=== PATIENT | female | born 1930 | race Caucasian/White ===

== ENCOUNTER 2016-10-26 12:33 | Emergency (ER) | payer MEDICARE ==
[~2016-10-26] VITALS: Ht 154.9 cm; Wt 85.0 kg
[~2016-10-26 12:33] MED LIST: ACET-171 PO; ATEN25TA PO; ATOR20TA PO; CHOL2000 PO; CLOP75TA3 PO; MULT-1052 PO; MULT-895 PO; ZLP10T PO
[2016-10-26 12:42] VITALS: BP 143/69; PULSE 64; RESP 12; O2SAT 98
[2016-10-26 13:54] LABS: BASOPHILS % (AUTO) 0.3 % (0-3); EOSINOPHILS % (AUTO) 2.8 % (0-5); MONOCYTES % (AUTO) 7.8 % (4-12); NEUTROPHILS % (AUTO) 65.3 % (40-74); Platelet Count 327 bil/L (150-400)
--- NOTE | 2016-10-26 13:55 | DRSVH ---
PROCEDURE: X-RAY CHEST, TWO VIEWS ([id number]) INDICATIONS: dizziness, weakness TECHNIQUE: 2 views of the chest were acquired. COMPARISON: [facility], , CHEST 2VW, 07/18/2014, 12:48. FINDINGS: Surgical changes and devices: Multiple surgical clips are redemonstrated in the right thorax. Lungs and pleura: No pleural effusions or pneumothorax. Lungs are clear. Mediastinum: Mediastinal contours are normal. Heart size is normal. Bones and chest wall: No suspicious bony abnormalities. Soft tissues appear unremarkable. IMPRESSION: 1. No acute cardiopulmonary disease. Dictated by: Roger Echevarria M.D. on 10/26/2016 at 13:53 Approved by: Roger Echevarria M.D. on 10/26/2016 at 13:54
[2016-10-26 14:53] VITALS: BP 132/62; PULSE 63; RESP 14; O2SAT 97
--- NOTE | 2016-10-26 15:09 | ED.REPORT ---
HPI-General Illness Date of Service October 26, 2016 ED Provider: Dr. Lalo Fleming 86 year old female with a history of HTN, TIA's and Stroke who presents to the ER accompanied by family with complaints of "low heart rate" and dizziness/ lightheadedness for the 2-3 weeks. This has been worse in the last few days. Her heart rate has been in the 50's-60's and the symptoms seem to be associated with when this is low. Her HR is typically in the 70's. She reports fatigue, chills and nausea. Pt denies any pain, fever, cough, dysuria or recent falls. Nursing Notes Stated Complaint: LOW HEART RATE/ DIZZINESS Chief Complaint: General Complaint Nursing Notes Reviewed: Yes Allergies: Coded Allergies: Cephalexin Monohydrate (Verified Allergy, Severe, blisters, 09/06/13) TAPE (Verified Allergy, Severe, all tapes/blisters, 09/06/13) Uncoded Allergies: CEPHALOSPORIN (Allergy, Severe, 03/24/09) Scheduled Atenolol (Atenolol) 25 Mg Tablet 12.5 MG PO QAM Atorvastatin (Lipitor) 20 Mg Tablet 40 MG PO HS Cholecalciferol (Vitamin D3) (Vitamin D) 2,000 Unit Capsule 2,000 UNIT PO DAILY Clopidogrel Bisulfate (Plavix) 75 Mg Tablet 75 MG PO DAILY Multivit-Min/FA/Lutein/Zeaxant (Macular Vitamin Tablet) 1 Each Tablet 1 EACH PO DAILY Multivits W-Fe,Other Min/Lut (Centrum Silver Ultra Women Tab) 1 Each Tablet 1 EACH PO DAILY Scheduled PRN Acetaminophen (Acetaminophen) 500 Mg Tablet 1,000 MG PO HS PRN PRN For Pain Zolpidem (Ambien) 10 Mg Tab 10 MG PO HS PRN PRN For Insomnia General Time Seen by MD: 15:08 Chief Complaint Dizziness Hx Obtained From: Patient Arrived By: Wheelchair Sudden in Onset?: No Onset Occurred: More than a week ago... Symptom Duration: Since onset Severity: Current: No pain currently Associated with: Denies: Fever, Shortness of breath Pertinent Negative: Relieved by nothing Past Medical History Past Medical History Notes: Cardiology: Reyna Silva Past Medical History Prior occipital stroke x3 Reports: Hypertension, Stroke, Transient ischemic attack Past Surgical History Colon resection Mastectomy Reports: Knee replacement Smoking History Never Smoker Social History Alcohol Use: "Social" Drug Use: Denies drug use Review of Systems Full Review of Systems Constitutional: Reports: Chills, Fatigue, Denies: Fever Respiratory: Denies: Non-productive cough, Shortness of breath Cardiovascular: Denies: Chest pain, Syncope GI: Reports: Nausea, Denies: Vomiting Female: Denies: Dysuria, Urinary frequency Skin: Denies Diaphoresis, Denies Rash Neurologic: Reports: Dizziness, Lightheaded Complete sys rev & neg: except as marked. Physical Exam Vital Signs Vital Signs Date Time Temp Pulse Resp B/P Pulse Ox O2 Delivery O2 Flow Rate FiO2 10/26/16 14:53 63 14 132/62 97 10/26/16 12:42 36.1 64 12 143/69 98 Room Air Initial VS: Reviewed General/Constitutional: Well-developed, Well-nourished Head / Eyes: Atraumatic, Normocephalic, PERRL ENT: Mucous membranes moist, Conjunctiva normal, No scleral icterus Neck: Supple, Full range of motion Respiratory: Breath sounds normal, Clear to auscultation, No respiratory distress Cardiovascular: Regular rate & rhythm, Heart sounds normal, Intact distal pulses Abdomen / GI: Soft, Non-tender, No guarding, No rebound, No distention Extremities: Vascular intact (Trace edema bilat lower extremities), Neuro intact, No tenderness Skin: Warm, Dry, No cyanosis Neurologic: Alert, Oriented, Nonfocal Psychiatric: Mood/affect normal, Behavior normal, Normal thought content Interpretation & Diagnostics Lab Results Interpretation Result Diagram: 10/26/16 1341 10/26/16 1341 Test 10/26/16 13:20 10/26/16 13:41 White Blood Count 7.4th/mm3 (3.8-10.1) Red Blood Count 3.71mil/mm3 (3.90-5.20) Hemoglobin 11.5g/dL (12.0-15.6) Hematocrit 34.5% (35.0-46.0) Mean Corpuscular Volume 93.0fL (81-100) Mean Corpuscular Hemoglobin 31.0pg (27.0-35.0) Mean Corpuscular Hemoglobin Concent 33.3% (32.0-37.0) Red Cell Distribution Width 13.3% (12.3-15.4) Platelet Count 327bil/L (150-400) Neutrophils (%) (Auto) 65.3% (40-74) Lymphocytes (%) (Auto) 23.5% (14-46) Monocytes (%) (Auto) 7.8% (4-12) Eosinophils (%) (Auto) 2.8% (0-5) Basophils (%) (Auto) 0.3% (0-3) Sodium Level 141mEq/L (134-144) Potassium Level 4.9mEq/L (3.5-5.2) Chloride Level 105mEq/L (97-108) Carbon Dioxide Level 22mmol/L (18-29) Blood Urea Nitrogen 33mg/dL (8-27) Creatinine 1.72mg/dL (0.57-1.00) Estimat Glomerular Filtration Rate 40mL/min (>59) Glucose Level 113mg/dL (60-99) Calcium Level 11.1mg/dL (8.5-10.1) Total Bilirubin 0.3mg/dL (0.0-1.2) Aspartate Amino Transf (AST/SGOT) 34U/L (0-50) Alanine Aminotransferase (ALT/SGPT) 32U/L (0-32) Alkaline Phosphatase 370U/L (25-165) Total Protein 6.2g/dL (6.4-8.4) Albumin 3.6g/dL (3.4-5.0) General Lab Results Interp 1: Labs reviewed ECG Interpretation Time: 14:16 Interpreted by: ED physician Normal ECG Interpretation: Normal ECG w/ rate of... (61), Normal rate, Normal sinus rhythm X-Ray Chest Interpretation Chest Xray Interpretation: IMPRESSION: 1. No acute cardiopulmonary disease. Dictated by: Roger Echevarria M.D. on 10/26/2016 at 13:53 View: AP & lat Interpretation / Wet Read by: Interpret - Radiologist Re-Eval/Medical Decision Time of Eval: 15:19 Re-Evaluation/Progress Note: Pt resting comfortably in bed. Updated pt of labs, ECG and imaging results. Discussed plan for discharge and follow up. All questions addressed. Counseled Regarding: Diagnosis, Lab results, Need for follow-up, Need for admission Discharge & Departure Primary Impression: Weakness Additional Impression: Dizziness Disposition: Home Discharge Condition All VS Reviewed: Yes Condition: Improved Additional Instructions: Your labs, ECG and chest x-ray today were reassuring. Call Dr. Silva tomorrow to schedule a follow up appointment. Keep your appointment with Dr. Orellana on Monday. If you become dizzy with standing make sure that you are taking precautions so you do not fall. Return to the ER for any concerning symptoms. Referrals: Brad Silva DO (PCP) Scribe Attestation Portions of this note were transcribed by Alexus Eckert. I, (Dr. Fleming) personally performed the history, physical exam and medical decision-making; I reviewed and confirmed the accuracy of the information in the transcribed note. Signed by: Alexus Eckert. Iftikhar, 10/26/2016, 1520 copies to: Brad Silva Kirk H MD October 26, 2016 15:08 Alexus Eckert October 26, 2016 15:17
[2016-10-26 15:38] VITALS: BP 151/58; PULSE 59; O2SAT 98
== END 2016-10-26 15:48 | disposition home or self-care (01) ==
LOC: SED 12:33
DX: R53.1 Weakness (principal); R42 Dizziness and giddiness; I10 Essential (primary) hypertension; Z86.73 Personal history of transient ischemic attack (TIA), and cerebral infarction without residual deficits; Z88.1 Allergy status to other antibiotic agents; Z79.899 Other long term (current) drug therapy